=== PATIENT | female | born 1960 ===

== ENCOUNTER 2020-12-09 15:15 | Outpatient (CLI) | payer BC, SELFPAY | END 2020-12-09 15:16 | disposition home or self-care (01) | LOC: SPT 15:16 | PROVIDERS: PCP Family Medicine; Visit Provider Orthopaedic Surgery | DX: Z46.89 Encounter for fitting and adjustment of other specified devices (principal); S52.592D Other fractures of lower end of left radius, subsequent encounter for closed fracture with routine healing; X58.XXXD Exposure to other specified factors, subsequent encounter | CPT/HCPCS: 97760; L3982 ==